=== PATIENT | female | born 1945 | race Caucasian/White ===

== ENCOUNTER 2017-07-10 11:36 | Emergency (ER) | payer OTHER ==
[~2017-07-10] VITALS: Ht 180.3 cm; Wt 87.0 kg
[2017-07-10 11:40] VITALS: BP 159/79; PULSE 74; RESP 16; TEMP 98.8; O2SAT 97
[2017-07-10] MEDS ORDERED: BENA25TA6 PO (11:57)
[2017-07-10] MEDS ORDERED: ROSU20 PO (11:57)
[2017-07-10] MEDS ORDERED: ASPI81CH CHEW (11:57)
[2017-07-10 11:59] LABS: BLOOD, URINE SMALL (NEG); GLUCOSE,URINE NEG (NEG); KETONE, URINE NEG (NEG); NITRITE,URINE POS (NEG); PH, URINE 7.5 (5.0-8.5)
[2017-07-10 12:00] LABS: METHOD OF COLLECTION CLEAN CATCH; URINE COLOR YELLOW (YELLW/STRAW)
[2017-07-10 12:01] LABS: BACTERIA, URINE MANY /hpf; COMMENT (UR) CULTURE INDICATED; CULTURE IF INDICATED CULTURE INDICATED; WBC, URINE 100-200 /hpf (0-5)
[2017-07-10] MEDS ORDERED: LEVOFLOXACIN 500 MG TAB PO ONE (12:15)
[2017-07-10] MEDS ORDERED: HYDROcodone 5 MG/HOMATROPINE 1.5 MG SYRUP 5 ML CUP PO ONE (12:15)
[2017-07-10] MEDS ORDERED: KETOROLAC TROMETHAMINE 60 MG/2 ML (IM) VIAL IM ONE (12:15)
--- NOTE | 2017-07-10 12:27 | RADRPT ---
EXAM DATE/TIME: 07/10/2017 12:06 [place] COMPARISON: No previous studies available for comparison. INDICATIONS : Cough MEDICAL HISTORY : None. SURGICAL HISTORY : None. ENCOUNTER: Initial ACUITY: 2 weeks PAIN SCORE: 0/10 LOCATION: Bilateral chest FINDINGS: PA and lateral views of the chest demonstrate the lungs to be symmetrically aerated without evidence of mass, infiltrate or effusion. Mild scoliosis. Tortuous aorta. CONCLUSION: 1. No active disease. Mild scoliosis and mildly tortuous aorta. Nolan Thompson MD on July 10, 2017 at 12:25 Board Certified Radiologist. This report was verified electronically.
[2017-07-10] MEDS ORDERED: GUAISYP5 PO (12:35)
[2017-07-10] MEDS ORDERED: LEVO500T8 PO (12:35)
[2017-07-10] MEDS ORDERED: DIFL150T PO (12:36)
--- NOTE | 2017-07-10 12:36 | PD ---
HPI Chief Complaint: Respiratory Symptoms Time Seen by Provider: 11:52 Travel History International Travel<30 days: No Contact w/Intl Traveler<30days: No Traveled to known affect area: No History of Present Illness HPI PATIENT C/O COUGH, PRODUCTIVE, NOT IMPROVING OVER LAST 2 WEEKS IT HAS GOTTEN WORSE....ALSO C/O BURNING ON URINATION AND FREQUENCY...DENIES ANY FEVER/N/V/D/ PFSH Past Medical History High Cholesterol: Yes Immunizations Current: Yes (SHINGLES) Influenza Vaccination: Yes Past Surgical History Section: Yes Eye Surgery: Yes (CATARACT) Hysterectomy: Yes Joint Replacement: Yes (LEFT KNEE) Social History Alcohol Use: No Tobacco Use: No Substance Use: No Allergies-Medications (Allergen,Severity, Reaction): Coded Allergies: azithromycin (Verified Allergy, Unknown, 07/10/17) bacitracin (Verified Allergy, Unknown, 07/10/17) neomycin (Verified Allergy, Unknown, 07/10/17) polymyxin B (Verified Allergy, Unknown, 07/10/17) Reported Meds & Prescriptions Reported Meds & Active Scripts Active Diflucan (Fluconazole) 150 Mg Tab 150 Mg PO ONCE Guaiatussin AC Liq (Guaifenesin-Codeine Liq) 100-10 Mg/5 Ml Syrp 10 Ml PO Q6H PRN Levofloxacin 500 Mg Tablet 500 Mg PO DAILY 7 Days Reported Benadryl Allergy (Diphenhydramine HCl) 25 Mg Tablet 1 Tab PO DAILY Aspirin 81 Mg Chew 81 Mg CHEW DAILY Crestor (Rosuvastatin Calcium) 20 Mg Tab 20 Mg PO DAILY Review of Systems Except as stated in HPI: all other systems reviewed are Neg Respiratory: Positive: Cough Genitourinary: Positive: Urgency, Frequency Physical Exam Narrative GENERAL: SKIN: Warm and dry. HEAD: Atraumatic. Normocephalic. EYES: Pupils equal and round. No scleral icterus. No injection or drainage. ENT: No nasal bleeding or discharge. Mucous membranes pink and moist. NECK: Trachea midline. No JVD. CARDIOVASCULAR: Regular rate and rhythm. RESPIRATORY: No accessory muscle use. RIGHT LUNG BUTTS RONCHI PRESENT GASTROINTESTINAL: Abdomen soft, non-tender, nondistended. MUSCULOSKELETAL: Extremities without clubbing, cyanosis, or edema. No obvious deformities. NEUROLOGICAL: Awake and alert. No obvious cranial nerve deficits. Motor grossly within normal limits. Five out of 5 muscle strength in the arms and legs. Normal speech. PSYCHIATRIC: Appropriate mood and affect; insight and judgment normal. Data Data Last Documented VS Vital Signs Date Time Temp Pulse Resp B/P (MAP) Pulse Ox O2 Delivery O2 Flow Rate FiO2 07/10/17 11:40 98.8 74 16 159/79 (105) 97 Orders Orders Urinalysis - C+S If Indicated (07/10/17 11:43) Chest, Pa & Lat (07/10/17 11:49) Urine Culture (07/10/17 11:50) Ketorolac Inj (Toradol Inj) (07/10/17 12:15) Levofloxacin (Levaquin) (07/10/17 12:15) Hydrocodone-Homatropine Liq (Hycodan Liq (07/10/17 12:15) Labs Laboratory Tests Test 07/10/17 11:50 Urine Collection Type CLEAN CATCH Urine Color YELLOW Urine Turbidity MOD Urine pH 7.5 Urine Specific Yolyn 1.005 Urine Protein NEG mg/dL Urine Glucose (UA) NEG mg/dL Urine Ketones NEG mg/dL Urine Occult Blood SMALL Urine Nitrite POS Urine Bilirubin NEG Urine Leukocyte Esterase LARGE Urine RBC 4-9 /hpf Urine WBC 100-200 /hpf Urine WBC Clumps MANY Urine Squamous Epithelial Cells 6-8 /hpf Urine Amorphous Sediment FEW Urine Bacteria MANY /hpf Microscopic Urinalysis Comment CULTURE INDICATED Urine Collection Time 1150 MDM Medical Decision Making Medical Screen Exam Complete: Yes Emergency Medical Condition: Yes Medical Record Reviewed: Yes Differential Diagnosis UTI V BRONCHITIS V PNA Narrative Course UA SHOWED SIGNS C/W UTI, AND WILL TREAT WITH ABX, ALSO CXR DID NOT SHOW ANY OPACIFICATION NOTED Diagnosis Primary Impression: UTI Additional Impression: Acute bronchitis and bronchiolitis Patient Instructions: Acute Bronchitis (ED), General Instructions, Urinary Tract Infection in Women (ED) Scripts Benzonatate (Tessalon Perles) 100 Mg Cap 200 MG PO TID Y for COUGH, #21 CAP 0 Refills Prov: Rory Mayen MD 07/10/17 Fluconazole (Diflucan) 150 Mg Tab 150 MG PO ONCE for Infection, #1 TAB 0 Refills Prov: Rory Mayen MD 07/10/17 Guaifenesin-Codeine Liq (Guaiatussin AC Liq) 100-10 Mg/5 Ml Syrp 10 ML PO Q6H Y for COUGH, #160 ML Prov: Rory Mayen MD 07/10/17 Levofloxacin (Levofloxacin) 500 Mg Tablet 500 MG PO DAILY for Infection for 7 Days, #7 TAB 0 Refills Prov: Rory Mayen MD 07/10/17 Disposition: 01 DISCHARGE HOME Condition: Stable Rory Mayen MD Jul 10, 2017 12:36
[2017-07-10] MEDS ORDERED: BENZ100 PO (12:53)
[2017-07-10 13:11] VITALS: BP 142/76; PULSE 74; RESP 18; O2SAT 98
== END 2017-07-10 13:14 | disposition home or self-care (01) ==
LOC: PHED 11:36
DX: N39.0 Urinary tract infection, site not specified (principal); J21.9 Acute bronchiolitis, unspecified; J20.9 Acute bronchitis, unspecified; E78.00 Pure hypercholesterolemia, unspecified
CPT/HCPCS: 71020; 81001; 87077; 87086; 87186; 96372; 99284; J1885